=== PATIENT | male | born 1965 | race Caucasian/White ===

== ENCOUNTER → 2023-12-24 11:18 | Outpatient (REF) | payer SELFPAY | LOC: RAD 11:18 | PROVIDERS: ATTENDING PHYSICIAN Family Medicine | DX: S16.1XXA Strain of muscle, fascia and tendon at neck level, initial encounter (principal) | CPT/HCPCS: 72050 ==

== ENCOUNTER → 2024-05-20 06:34 | Outpatient (REF) | payer OTHER, SELFPAY | LOC: MRI 3T 06:34 | PROVIDERS: ATTENDING PHYSICIAN Family Medicine | DX: S39.012D Strain of muscle, fascia and tendon of lower back, subsequent encounter (principal) | CPT/HCPCS: 72148 ==